=== PATIENT | female | born 1950 | race Caucasian/White ===

== ENCOUNTER → 2023-07-29 10:16 | Outpatient (REF) | payer MEDICARE, SELFPAY | LOC: HWRAD 10:16 | PROVIDERS: ATTENDING PHYSICIAN Family Medicine | DX: R10.9 Unspecified abdominal pain (principal); R14.0 Abdominal distension (gaseous) | CPT/HCPCS: 74018 ==

== ENCOUNTER → 2024-01-07 06:26 | Day surgery (SDC) | payer MEDICARE, SELFPAY | LOC: GI 06:26 | PROVIDERS: ATTENDING PHYSICIAN Internal Medicine Gastroenterology | DX: Z12.11 Encounter for screening for malignant neoplasm of colon (principal); K57.30 Diverticulosis of large intestine without perforation or abscess without bleeding; K64.8 Other hemorrhoids; R19.7 Diarrhea, unspecified; M99.05 Segmental and somatic dysfunction of pelvic region; Z86.010 Personal history of colon polyps | CPT/HCPCS: 45380; 88305 ==